=== PATIENT | male | born 1955 | race Caucasian/White ===

== ENCOUNTER 2016-08-23 15:33 | Emergency (ER) | payer OTHER ==
[~2016-08-23] VITALS: Ht 152.4 cm; Wt 102.4 kg
[~2016-08-23 15:33] MED LIST: ADVAIR 250/501 DISK IH; ADVAIR HFA 45-218 GM IH; ADVAIR HFA120 INHAL1 IH; ADVAIR HFA120 INHAL2 IH; ALEVE220 MG PO; ALKA-SELTZER D1 EACH PO; ALKA-SELTZER G1 EAC1 PO; ASPIRIN325 MG PO; ATROVENT 00.5 MG/2.5 IH; Advair HFA 230/21 IH; BACTRIM,SEPT1 TABLET PO; BENADRYL ALLERG25 MG PO; BENADRYL25 MG PO; BUDEPRION XL150 MG PO; BUDESONIDE0.25 MG/2 IH; BUDESONIDE0.5 MG/2 M IH; Bactrim,Septra DS 80 PO; CELEXA10 MG PO; CITALOPRAM HBR10 MG PO; COMPAZINE10 MG PO; CYTOXAN500 MG; CYTOXAN500 MG IV; Colace PO; DEPO-TESTOS200 MG/ML IM; DEXAMETHASONE4 MG PO; DIABETA,MICRONAS5 MG PO; DILAUDID4 MG PO; DILAUDID8 MG PO; DULCOLAX5 MG PO; DUONEB 2.5-0.5 M3 ML IH; DUONEB3 ML IH; FAMOTIDINE40 M1 PO; FAMOTIDINE40 MG PO; FENOFIBRATE160 M1 NG; FENOFIBRATE160 M1 PO; FLOMAX0.4 M1 PO; FLOMAX0.4 MG PO; Flomax PO; GENACOTE325 MG PO; GLIPIZIDE10 MG PO; GLIPIZIDE5 M1 PO; GLUCOTROL10 MG PO; GLUCOTROL5 M1 PO; Glucotrol PO; HUMALOG100 UNIT/1 SC; HUMALOG100 UNIT/2; HUMALOG100 UNIT/2 SC; HUMULIN 70100 UNIT/1 SQ; HYDROCHLOROTH12.5 MG PO; HYDROCHLOROTHIA25 MG PO; HYDROMORPHONE HC4 MG PO; IPRATR-ALBUTEROL3 ML IH; JANUVIA100 MG PO; KADIAN20 MG PO; KADIAN40 MG PO; KYTRIL1 MG PO; LANTUS 10100 UNITS/ SC; LANTUS 3 M100 UNITS/ SC; LANTUS 3 M100 UNITS1 SC; LASIX40 MG PO; LEVOTHROID50 MCG PO; LEVOXYL50 MCG PO; LO-DOSE ASPIRIN81 M1 PO; LOFIBRA,TRIGLI160 MG PO; LOPRESSOR25 MG PO; LYRICA50 MG PO; Levaquin PO; Levothroid,Synthroid PO; Lopressor PO; PEPCID40 MG PO; POMALYST4 MG PO; PRAVACHOL80 MG PO; PRAVASTATIN SOD80 MG PO; PREDNISONE20 MG PO; PROBIOTIC1 EAC2 PO; PULMICORT0.5 MG/21 IH; Pravachol PO; SINGULAIR10 MG PO; SULFAMETHOXAZO1 EAC4 PO; TOPROL XL50 MG PO; Tricor PO; VALACYCLOVIR1000 MG PO; VALTREX1000 MG PO; VENTOLIN HFA18 GM IH; ValTRex PO; WELLBUTRIN SR150 MG PO; WELLBUTRIN XL150 MG PO; Wellbutrin XL PO; XANAX0.25 MG PO; XGEVA120 MG/1.7 SC; ZITHROMAX500 MG PO; ZOMETA 4 M4 MG/100 M; ZOMETA 4 M4 MG/100 M IV; [UNRECOGNIZED DRUG - OTHER]; [UNRECOGNIZED DRUG - OTHER] IV; celeXA PO
[2016-08-23 16:11] LABS: HEMATOCRIT 32.7 % (38.0-50.0); MCH 29.9 PG (29.0-34.0); MCHC 32.7 G/DL (30.0-36.0); MCV 91.3 FL (86-99); MEAN PLAT.VOLUME 9.8 uM^3 (9.0-12.4); RBC DIS.WIDTH-CV 15.2 % (11.8-14.6); RBC DIS.WIDTH-SD 49.4 % (39-53); RED BLOOD COUNT 3.58 M/uL (4.00-5.50)
[2016-08-23 16:13] LABS: PLATELET COUNT 185 K/uL (156-360); WHITE BLOOD COUNT 2.7 K/uL (4.1-10.2)
[2016-08-23 16:23] LABS: CHLORIDE 101 mEq/L (99-109); POTASSIUM 4.5 mEq/L (3.7-5.4); SODIUM 136 mEq/L (136-147)
[2016-08-23 16:25] LABS: GLUCOSE 195 mg/dL (70-99)
[2016-08-23 16:26] LABS: ANION GAP 9 MEQ/L (2-14)
[2016-08-23 16:29] LABS: GFR ESTIMATE (CALCULATED) 43 mL/min/
[2016-08-23 16:30] LABS: UREA NITROGEN (BUN) 31 mg/dL (9-23)
[2016-08-23 16:31] LABS: TROP-I INTERPRETATION NEGATIVE; TROPONIN-I 0.02 ng/mL (0.0-0.30)
[2016-08-23 18:56] VITALS: BP 153/68
== END 2016-08-23 18:57 | disposition home or self-care (01) ==
LOC: EME 15:33
DX: R00.8 Other abnormalities of heart beat (principal); E11.9 Type 2 diabetes mellitus without complications; I10 Essential (primary) hypertension; Z85.79 Personal history of other malignant neoplasms of lymphoid, hematopoietic and related tissues; Z95.1 Presence of aortocoronary bypass graft; Z91.013 Allergy to seafood; Z88.6 Allergy status to analgesic agent
CPT/HCPCS: 71020; 80048; 84484; 85027; 93005; 99281; 99285

== ENCOUNTER 2016-12-25 10:22 | Emergency (ER) | payer OTHER ==
[~2016-12-25] VITALS: Ht 172.7 cm; Wt 97.5 kg
[2016-12-25 11:19] LABS: BASE EXCESS 0.9 mEq/L (-3 to +3); BICARBONATE 22.6 mEq/L (22-26); CARBOXY HGB 1.8 % (0-5); METHEMOGLOBIN 1.2 % (0-1.5); PCO2 27 mm Hg (35-45); PO2 95 mm Hg (80-100); pH 7.53 (7.35-7.45)
[2016-12-25 11:21] LABS: COMMENTS - BLOOD GASES A+C+; DEVICE RA; SITE LR; TOTAL RESP RATE 19 resp/min
[2016-12-25 11:47] LABS: EOSINOPHIL (%) 1.7 % (0-5); HEMATOCRIT 36.3 % (38.0-50.0); IMMATURE GRANULOCYTE (%) 0.4 % (0.0-0.7); INSTRUMENT ABS NEUTROPHIL CT 1.6 K/uL; LYMPHOCYTE COUNT 0.4 K/uL (1.0-2.8); MCH 29.3 PG (29.0-34.0); MCHC 33.3 G/DL (30.0-36.0); MEAN PLAT.VOLUME 10.1 uM^3 (9.0-12.4); MONOCYTE (%) 11.1 % (3-12); MONOCYTE COUNT 0.3 K/uL (0-0.8); NEUTROPHIL (%) 70.2 % (45-76); NEUTROPHIL COUNT 1.6 K/uL (1.8-6.4); PLATELET COUNT 99 K/uL (156-360); RBC DIS.WIDTH-CV 13.1 % (11.8-14.6); RBC DIS.WIDTH-SD 42.2 % (39-53); RED BLOOD COUNT 4.13 M/uL (4.00-5.50); WHITE BLOOD COUNT 2.3 K/uL (4.1-10.2)
[2016-12-25 11:55] LABS: MCV 87.9 FL (86-99)
[2016-12-25 11:58] LABS: CHLORIDE 104 mEq/L (99-109); POTASSIUM 3.9 mEq/L (3.7-5.4); SODIUM 140 mEq/L (136-147)
[2016-12-25 12:00] LABS: GLUCOSE 284 mg/dL (70-99); INTER. NORMALIZED RATIO 1.1; PROTHROMBIN TIME 11.4 (9.2-11.2); PTT 30.6 (25-32)
[2016-12-25 12:01] LABS: ANION GAP 13 MEQ/L (2-14)
[2016-12-25 12:04] LABS: GFR ESTIMATE (CALCULATED) 50 mL/min/
[2016-12-25 12:05] LABS: UREA NITROGEN (BUN) 18 mg/dL (9-23)
[2016-12-25 12:10] LABS: TROP-I INTERPRETATION NEGATIVE; TROPONIN-I < 0.01 ng/mL (0.0-0.30)
[2016-12-25] MEDS ORDERED: ZITHROMAX Z-PA250 MG PO (13:57)
[2016-12-25 15:51] VITALS: BP 156/75
== END 2016-12-25 15:51 | disposition home or self-care (01) ==
LOC: EME 10:22
PROVIDERS: Emergency Medicine
DX: J44.1 Chronic obstructive pulmonary disease with (acute) exacerbation (principal); R19.7 Diarrhea, unspecified; R41.0 Disorientation, unspecified; I10 Essential (primary) hypertension; E11.9 Type 2 diabetes mellitus without complications; Z79.4 Long term (current) use of insulin; Z95.1 Presence of aortocoronary bypass graft; Z79.82 Long term (current) use of aspirin; Z87.891 Personal history of nicotine dependence
CPT/HCPCS: 36600; 71010; 80048; 82803; 83880; 84484; 85025; 85610; 85730; 93005; 94640; 99281; 99284; J7644

== ENCOUNTER 2017-06-03 13:16 | Inpatient (IN) | payer OTHER ==
[~2017-06-03] VITALS: Ht 177.8 cm; Wt 102.3 kg
[~2017-06-03 13:16] MED LIST changes: +CELEXA20 MG PO; +GLIPIZIDE XL10 MG PO; -LANTUS 10100 UNITS/ SC; +LEVOXYL75 MCG PO; +TRESIBA FL100 UNIT/1 SC; +WELLBUTRIN XL300 MG PO; +ZITHROMAX Z-PA250 MG PO
[2017-06-03 13:57] LABS: HEMATOCRIT 33.8 % (38.0-50.0); MCH 27.8 PG (29.0-34.0); MCHC 33.4 G/DL (30.0-36.0); PLATELET COUNT 120 K/uL (156-360); RBC DIS.WIDTH-CV 14.4 % (11.8-14.6); RBC DIS.WIDTH-SD 43.5 % (39-53); RED BLOOD COUNT 4.07 M/uL (4.00-5.50); WHITE BLOOD COUNT 10.1 K/uL (4.1-10.2)
[2017-06-03 14:07] LABS: CHLORIDE 96 mEq/L (99-109); POTASSIUM 4.5 mEq/L (3.7-5.4); SODIUM 128 mEq/L (136-147)
[2017-06-03 14:08] LABS: GLUCOSE 198 mg/dL (70-99)
[2017-06-03 14:10] LABS: ANION GAP 8 MEQ/L (2-14)
[2017-06-03 14:12] LABS: GFR ESTIMATE (CALCULATED) 54 mL/min/
[2017-06-03 14:13] LABS: UREA NITROGEN (BUN) 32 mg/dL (9-23)
[2017-06-03] MEDS ORDERED: LASIX40 MG PO (17:20)
[2017-06-03] MEDS ORDERED: NOVOLOG PE100 UNITS/ SC (17:26)
[2017-06-03] MEDS ORDERED: PEN-VEE K,VEET250 MG PO (17:27)
[2017-06-03] MEDS ORDERED: SYMBICORT60 INHALAT IH (17:28)
[2017-06-03] MEDS ORDERED: GABAPENTIN100 MG PO (17:42)
[2017-06-03 21:18] VITALS: BP 142/66
[2017-06-03 23:35] VITALS: BP 120/58
[2017-06-04 03:58] VITALS: BP 151/71
[2017-06-04 06:12] LABS: HEMATOCRIT 31.2 % (38.0-50.0); MCH 27.5 PG (29.0-34.0); MCV 83.2 FL (86-99); MEAN PLAT.VOLUME 8.8 uM^3 (9.0-12.4); PLATELET COUNT 95 K/uL (156-360); RBC DIS.WIDTH-CV 14.4 % (11.8-14.6); RBC DIS.WIDTH-SD 43.8 % (39-53); RED BLOOD COUNT 3.75 M/uL (4.00-5.50); WHITE BLOOD COUNT 10.6 K/uL (4.1-10.2)
[2017-06-04 06:32] LABS: ANION GAP 9 MEQ/L (2-14); CHLORIDE 98 MEQ/L (99-109); GFR ESTIMATE (CALCULATED) 43 mL/min/; GLUCOSE 190 mg/dL (70-99); POTASSIUM 4.1 MEQ/L (3.7-5.4); SAMPLE HEMOLYSIS CHECK 0; SAMPLE ICTERIC CHECK 0; SAMPLE LIPEMIA CHECK 0; SODIUM 131 MEQ/L (136-147); UREA NITROGEN (BUN) 36 mg/dL (9-23)
[2017-06-04 06:34] LABS: POINT-OF-CARE METER ID UU14188577
[2017-06-04 08:00] VITALS: BP 144/63
[2017-06-04 11:10] LABS: POINT-OF-CARE METER ID UU14188577
[2017-06-04 16:23] LABS: POINT-OF-CARE METER ID UU14117124
[2017-06-04 17:55] LABS: POINT-OF-CARE METER ID UU14117124
[2017-06-04 20:05] VITALS: BP 135/65
[2017-06-04 22:00] LABS: POINT-OF-CARE METER ID UU14188577
[2017-06-05 00:09] VITALS: BP 160/70
[2017-06-05 06:58] LABS: POINT-OF-CARE METER ID UU14149397
[2017-06-05 07:50] LABS: POINT-OF-CARE METER ID UU14149397
[2017-06-05 08:06] LABS: POINT-OF-CARE METER ID UU14149397
[2017-06-05 08:29] VITALS: BP 142/71
[2017-06-05 11:25] LABS: POINT-OF-CARE METER ID UU14149397
[2017-06-05 16:14] LABS: POINT-OF-CARE METER ID UU14208753
[2017-06-05 16:51] VITALS: BP 130/58
[2017-06-05 20:12] VITALS: BP 130/65
[2017-06-05 23:29] LABS: POINT-OF-CARE METER ID UU14188577
[2017-06-06 00:05] VITALS: BP 135/68
[2017-06-06 06:26] LABS: POINT-OF-CARE METER ID UU14149397
[2017-06-06 08:13] VITALS: BP 140/69
[2017-06-06 12:05] LABS: POINT-OF-CARE METER ID UU14149397
[2017-06-06 13:46] LABS: ANION GAP 9 MEQ/L (2-14); CHLORIDE 97 MEQ/L (99-109); GFR ESTIMATE (CALCULATED) 54 mL/min/; GLUCOSE 271 mg/dL (70-99); POTASSIUM 4.4 MEQ/L (3.7-5.4); SAMPLE HEMOLYSIS CHECK 0; SAMPLE ICTERIC CHECK 0; SAMPLE LIPEMIA CHECK 0; SODIUM 130 MEQ/L (136-147); UREA NITROGEN (BUN) 30 mg/dL (9-23)
[2017-06-06 15:51] LABS: POINT-OF-CARE METER ID UU14188577
[2017-06-06 16:18] VITALS: BP 133/62
[2017-06-06 23:02] LABS: POINT-OF-CARE METER ID UU14188577
[2017-06-06 23:20] VITALS: BP 133/62
[2017-06-07 06:38] LABS: POINT-OF-CARE METER ID UU14117124
[2017-06-07 09:03] VITALS: BP 148/75
[2017-06-07 13:08] LABS: POINT-OF-CARE METER ID UU14149397
[2017-06-07 14:58] VITALS: BP 131/60
[2017-06-07] MEDS ORDERED: UNASYN3 GM IV (16:41)
[2017-06-07 16:52] LABS: POINT-OF-CARE METER ID UU14149397
== END 2017-06-07 22:20 | DRG 982 ==
LOC: EME 13:16 → SDC 18:40 → ENRESERV 20:38 → CANRESERV 20:38 → 2SOUTH 20:39 → 3EAST 20:39 → ENRESERV 20:48 → 3EAST 21:09
PROVIDERS: Internal Medicine; Nurse Practitioner Family; Thoracic Surgery (Cardiothoracic Vascular Surgery)
DX: L02.413 Cutaneous abscess of right upper limb (principal); C90.00 Multiple myeloma not having achieved remission; F11.20 Opioid dependence, uncomplicated; J44.9 Chronic obstructive pulmonary disease, unspecified; I25.10 Atherosclerotic heart disease of native coronary artery without angina pectoris; E11.9 Type 2 diabetes mellitus without complications; R29.6 Repeated falls; D69.59 Other secondary thrombocytopenia; E66.01 Morbid (severe) obesity due to excess calories; L98.494 Non-pressure chronic ulcer of skin of other sites with necrosis of bone; B95.4 Other streptococcus as the cause of diseases classified elsewhere; B96.89 Other specified bacterial agents as the cause of diseases classified elsewhere; E66.9 Obesity, unspecified; Z79.899 Other long term (current) drug therapy; Z82.49 Family history of ischemic heart disease and other diseases of the circulatory system; Z87.891 Personal history of nicotine dependence; Z92.21 Personal history of antineoplastic chemotherapy; Z95.1 Presence of aortocoronary bypass graft; Z88.5 Allergy status to narcotic agent; Z79.4 Long term (current) use of insulin; Z91.013 Allergy to seafood; Z68.32 Body mass index [BMI] 32.0-32.9, adult
CPT/HCPCS: 73080; 80048; 80202; 82948; 83605; 85027; 87040; 87070; 87075; 87076; 87185; 87205; 93005; 94640; 94640 76; 97530 GO; 97530 GP; 99202; 99281; 99285; J0295; J0330; J0690; J0696; J1170; J1644; J1815; J1885; J2405; J2543; J3010; J3370; J7050; J7120

== ENCOUNTER 2017-06-21 04:17 | Emergency (ER) | payer OTHER ==
[~2017-06-21] VITALS: Ht 172.7 cm; Wt 103.4 kg
[~2017-06-21 04:17] MED LIST changes: +GABAPENTIN100 MG PO; +NOVOLOG PE100 UNITS/ SC; +PEN-VEE K,VEET250 MG PO; +SYMBICORT60 INHALAT IH; +UNASYN3 GM IV
[2017-06-21 04:35] VITALS: BP 150/70
== END 2017-06-21 05:02 ==
LOC: EME → EDBD 04:17 → EME 04:17
DX: Z45.2 Encounter for adjustment and management of vascular access device (principal); Z88.5 Allergy status to narcotic agent; Z88.8 Allergy status to other drugs, medicaments and biological substances
CPT/HCPCS: 99281; 99284

== ENCOUNTER 2017-10-07 07:20 | Emergency (ER) | payer OTHER ==
[~2017-10-07] VITALS: Ht 177.8 cm; Wt 100.0 kg
[2017-10-07] MEDS ORDERED: PERCOCET 5/31 TABLET PO (09:31)
[2017-10-07 09:46] VITALS: BP 154/79
== END 2017-10-07 09:48 | disposition home or self-care (01) ==
LOC: EME 07:20
PROVIDERS: Emergency Medicine
PROC: 2W39X1Z Immobilization of Left Upper Extremity using Splint (ICD-10-PCS; principal; 2017-10-07)
DX: S52.002A Unspecified fracture of upper end of left ulna, initial encounter for closed fracture (principal); M25.521 Pain in right elbow; M54.2 Cervicalgia; W01.0XXA Fall on same level from slipping, tripping and stumbling without subsequent striking against object, initial encounter; Y93.89 Activity, other specified; J44.9 Chronic obstructive pulmonary disease, unspecified; I25.10 Atherosclerotic heart disease of native coronary artery without angina pectoris; E11.9 Type 2 diabetes mellitus without complications; C90.00 Multiple myeloma not having achieved remission; Z95.1 Presence of aortocoronary bypass graft; Z88.5 Allergy status to narcotic agent; Z88.8 Allergy status to other drugs, medicaments and biological substances
CPT/HCPCS: 72040; 73080; 82948; 99281; 99285